=== PATIENT | female | born 1965 | race Hispanic/Latino ===

== ENCOUNTER 2018-12-31 09:09 | Day surgery (SDC) | payer BC ==
[2018-12-30 13:49] LABS: Absolute Lymphocytes (CBC) 1.2 K/uL (0.7-4.9); Absolute Monocytes 0.6 K/uL (0.1-1.3); Absolute Neutrophil 3.7 K/uL (1.8-8.0); Basophils % 0.5 % (0-1.3); Eosinophils % 1.2 % (0-4.4); Hematocrit 38.9 % (36.0-45.0); Lymphocytes % 21.4 % (15.3-44.8); Monocytes % 10.6 % (3.3-12.3); RBC Red Blood Cell Count 4.37 M/uL (3.86-4.86)
--- NOTE | 2018-12-30 14:07 | RAD REPORT ---
EXAM DESCRIPTION: Meño Acosta (2 Views)12/30/2018 1:58 pm CLINICAL HISTORY: Preop for left thumb surgery COMPARISON: None FINDINGS: The lungs appear clear of acute infiltrate. The heart is normal size IMPRESSION: No acute abnormalities displayed
[2018-12-30 14:11] LABS: Potassium 3.8 mmol/L (3.5-5.1)
--- NOTE | 2018-12-31 07:41 | EKG ---
Test Date: 2018-12-30 Test Time: 13:43:58 Flat Clothier: LEONARDO MEASUREMENT RESULTS: Intervals: Rate: 67 SD: 176 QRSD: 102 QT: 406 QTc: 429 [place]: P: 70 SD: 176 QRS: 22 T: 36 INTERPRETIVE STATEMENTS: Normal sinus rhythm Incomplete right bundle branch block Possible Anterior infarct, age undetermined Abnormal ECG No previous ECG available for comparison Electronically Signed On 12-31-18 07:40:51 CDT by Dick Rock
--- OUTSIDE RECORDS SUMMARY | 2018-12-31 09:12 | XMS REPORT ---
:1965 [facility] Address [address] [place] [address] Care Team Providers Name Role Phone MIGUELANGEL SUH Primary Care Provider Unavailable MIGUELANGEL SUH Unavailable Unavailable Problems This patient has no known problems. Allergies, Adverse Reactions, Alerts This patient has no known allergies or adverse reactions. Medications This patient has no known medications. Encounters Start End Encounter Admission Attending Care Care Encounter Date/Time Date/Time Type Type Clinicians Facility Department ID 2017-07-03 2017-07-03 Outpatient Prisca SUH [facility] [id number] 20:13:00 20:13:00 MIGUELANGEL Results Test Description Test Time Test Comments Text Results Atomic Results Result Comments Thyroid Stimulating Hormone (TSH) 2017-07-04 23:57:00 Test Item Value Reference Range Comments TSH (test code=TSH) 1.40 mIU/mL 0.270-4.200 Sed Rate ESR ([place])2017-07-04 23:01:00 Test Item Value Reference Range Comments ESR (test code=HESR) 34 mm/Hr 0-20 Comprehensive Metabolic [id number] 21:54:00 Test Item Value Reference Range Comments Sodium (test code=NA) 139 mmol/L 135-145 Potassium (test code=K) 3.7 mmol/L 3.5-5.1 Chloride (test code=CL) 98 mmol/L 98-105 Carbon Dioxide (test 27 mmol/L 22-29 code=CO2) Glucose (test code=GLU) 102 mg/dL 70-115 Blood Urea Nitrogen 15 mg/dL 6-20 (test code=BUN) Creatinine (test 0.7 mg/dL 0.5-0.9 code=CREAT) Calcium (test code=CA) 9.7 mg/dL 8.3-10.5 Prot Total (test 7.6 g/dL 6.4-8.3 code=TP) Albumin (test code=ALB) 4.7 g/dL 3.5-5.2 A/G Ratio (test 1.6 Ratio code=AGRATIO) Globulin (test 2.9 2.9-3.1 code=GLOB) Bili Total (test 0.4 mg/dL 0.1-0.9 code=TBIL) Alk Phos (test 134 U/L 35-104 code=APHOS) AST (test code=AST) 32 U/L 1-32 ALT (test code=ALT) 56 U/L 1-33 BUN/Creatinine Ratio 21.4 (test code=BCRATIO) Anion Gap (test 14 mmol/L 7-16 code=AGAP) Estimated GFR (test >60 mL/min/1.73m2 eGFR (estimated Glomerular code=GFR) Filtration Rate) is an estimated value,calculated from the patient's serum creatinine using the MDRD equation.It is NOT the patient's actual GFR. The eGFR provides a more clinicallyuseful measure of kidney disease than serum creatinine alone.This calculation takes sex and race into account, if the informationis provided. If the race is not provided, and the patient isAfrican-Grenadian, multiply by 1.212. If sex is not provided, and thepatient is female, multiply by 0.742. Results for patients <18 years ofage have not been validated by the MDRD study and should be interpretedwith caution.eGFR Result Interpretation:eGFR > or=60 is in the Normal RangeeGFR < 60 may mean kidney diseaseeGFR < 15 may mean kidney failureRanges recommended by the National Kidney Foundation,http://nkdep.nih .gov Lipid [id number] 21:54:00 Test Item Value Reference Range Comments Cholesterol (test 214 mg/dL 0-200 code=CHOL) Triglycerides (test 97 mg/dL 9-200 code=TRIG) HDL (test code=HDL) 70 mg/dL 50-60 Chol/HDL (test 3.1 Ratio 0.0-4.4 code=CHOLPHDL) LDL, Calculated (test 125 mg/dL 0-130 (NOTE)RISK OF HEART code=LDLC) DISEASEPublished by [place] Heart AssociationAnalyte Optimal Boderline Increased RiskCHOL <200 200-239 >240TRIG <150 150-199 >200HDL Male: >60 <40HDL Female: >60 <50LDL <100 130-159 >160LDL NEAR OPTIMAL IS 100-129 VLDL (test code=VLDL) 19 mg/dL 5-40 LDL/HDL (test code=LDLPHDL) 2 CBC with [id number] 21:51:00 Test Item Value Reference Range Comments WBC (test code=WBC) 5.1 K/cumm 4.4-10.5 RBC (test code=RBC) 4.30 M/cumm 3.75-5.20 Hemoglobin (test code=HGB) 13.2 gm/dL 12.2-14.8 Hematocrit (test code=HCT) 38.6 % 36.5-44.4 MCV (test code=MCV) 89.8 fL 80-100 MCH (test code=MCH) 30.6 pg 27.0-32.5 MCHC (test code=MCHC) 34.1 g/dL 32.0-37.5 RDW (test code=RDW) 13.6 % 11.5-14.5 Platelet Count (test code=PLTCT) 274 K/cumm 140-440 MPV (test code=MPV) 10.7 fL Diff Method (test code=DIFFM) Auto Neutrophil (test code=NEUT) 75.3 % 36-70 Lymphocyte (test code=LYMPH) 17.4 % 12-44 Monocyte (test code=MONO) 5.5 % 0-11 Eosinophil (test code=EOS) 1.4 % 0-7 Basophil (test code=BASO) 0.3 % 0-2 Neutro Abs (test code=ANEUT) 3.8 K/cumm 1.6-7.4 Lymph Abs (test code=ALYMPH) 0.9 K/cumm 0.5-4.6 Inyo Abs (test code=AMONO) 0.3 K/cumm 0.0-1.2 Eos Abs (test code=AEOS) 0.07 K/cumm 0.00-0.74 Baso Abs (test code=ABASO) 0.0 K/cumm 0.00-0.21
--- OUTSIDE RECORDS SUMMARY | 2018-12-31 09:12 | XMS REPORT | Encounter Summary ---
:1965 Author Care Team Providers Name Role Phone Palak Aguilar MD Primary Care Provider [phone] Reason for Visit Pain Instructions 1. Fishing hook in finger Adacel (Tdap Adolesn/Adult)(PF)2 Lf-(2.5-5-3-5)-5 Lf/0.5 mL IM syringe doxycycline hyclate 100 mg capsule XR, hand, 2 view Discussion Note: None recorded.Patient educational handouts: No information available. Plan of Care Reminders Provider Appointments None recorded. Lab None recorded. Referral None recorded. Procedures None recorded. Surgeries None recorded. Imaging XR, Hand, 12/04/2018 [facility] Medications Name Start Date doxycycline hyclate 100 mg capsule Take 1 capsule twice a day by oral route for 10 days. Medications Administered None recorded. Vitals Height Weight BMI Blood Pressure 67 in 206 lbs 0.02 oz 32.3 kg/m2 160/87 mm[Hg] Lab Results None recorded. Allergies Code Code System Name Reaction Severity Status Onset NKDA Problems Name Status Onset Date Source Low Back Pain Active 10/16/2016 Neutropenia Active Encounter Procedures Date Name Performed by 12/04/2018 XR, Hand, 2 View [facility] [address] [place] [id number] (Work Place) Vaccine List Vaccine Type Tdap 12/04/20180.5 mL Social History Smoking Status Never Smoker Past Encounters 12/04/2018 Fishing Hook in Finger Aashish Schmitz MD: [address] [place] [address], [address], [place] [address], Ph. History of Present Illness Note: Patient was fishing last week and as she was reeling in a fish she thought she poked herself with a hook on the palmar surface of the leftt finger. Fourth finger. The patient is unclear as to when her last tetanus shot was. The patient has not had any fevers or chills. No nausea or vomiting. The area where she poked herself has become red but no streaking fluctuance or drainage has been noted.Review of Systems: ROS as noted in the HPI Review of Systems None recorded. Physical Exam General Adult Exam - Female Reported By: Patient Constitutional: General Appearance: healthy-appearing, well-nourished, well-developed. Level of Distress: NAD. Ambulation: ambulating normally Lungs: Respiratory effort: no dyspnea. Percussion: no dullness, flatness, or hyperresonance. Auscultation: breath sounds normal, good air movement, CTA except as noted, no wheezing, no rales/crackles, no rhonchi Cardiovascular: Apical Impulse: not displaced. Heart Auscultation: RRR, normal S1, normal S2, no murmurs, no rubs, no gallops. Neck vessels: no carotid bruits. Pulses including femoral / pedal: normal throughout Musculoskeletal:: Motor Strength and Tone: normal motor strength, normal tone. Joints, Bones, and Muscles: ; Palmar surface of the fourth Finger left hand has a area of puncture wound. Mild tenderness to palpation mild erythema and no fluctuance and no drainage. Extremities: no cyanosis, no edema Skin: Inspection and palpation: no rash, no lesions, no ulcer, no abnormal nevi, no induration, no nodules, good turgor, no jaundice. Nails: normal
[2018-12-31] MEDS ORDERED: Ringers Lactate 1,000 ML IV ONE (09:41)
[2018-12-31] MEDS ORDERED: CEFAZOLIN/SWI 1gm 0 GM/0 ML SYR ONE (09:56)
[2018-12-31] MEDS ORDERED: BUPIVACAINE 0.5% PF 10 ML VIAL ONE (10:46)
[2018-12-31] MEDS ORDERED: CEFAZOLIN/SWI 1gm 1 GM/10 ML SYR ONE (10:48)
[2018-12-31] MEDS ORDERED: MIDAZOLAM HCL 2 MG/2 ML INJ ONE (11:01)
[2018-12-31] MEDS ORDERED: PROPOFOL 200 MG/20 ML VIAL IV ONE (11:01)
[2018-12-31] MEDS ORDERED: KETOROLAC 30 MG/ML INJ ONE (11:01)
[2018-12-31] MEDS ORDERED: FENTANYL CITR 100 MCG/2 ML ONE (11:01)
[2018-12-31] MEDS ORDERED: LIDOCAINE 2% MPF 5 ML VIAL ONE (11:02)
--- NOTE | 2018-12-31 11:23 | P.BOP ---
Preoperative diagnosis: left thumb abscess, trauma, puncture non healing wound Postoperative diagnosis: same Primary procedure: incision and drainage left thumb abscess with subq debridement 2.5 x 2 cm Estimated blood loss: <5cc Specimen: culture, devitalized tissue Anesthesia: General Complications: None Transferred to: Recovery Room Condition: Good
--- NOTE | 2019-01-01 04:40 | DS ---
Date of Discharge: 12/31/2018 Diagnosis: Left thumb abscess with puncture wound. Procedure: Incision and drainage of left thumb abscess with subcutaneous debridement. Disposition: Home. Activity: As tolerated. No heavy lifting. Discharge Instructions: Follow up in my office in 1 week. Call for appointment at [phone]. After that, Bactroban after cleaning the area with running water and soap and water twice a day. Medications: See orders. RALPH/MODL Voice ID: [id number] Report ID: [id number]
--- NOTE | 2019-01-01 05:27 | OP ---
Date of Procedure: 12/31/2018 Surgeon: Dl Zapata MD Preoperative Diagnosis: Left thumb abscess trauma, status post puncture wound with nonhealing wound. Postoperative Diagnosis: Left thumb abscess trauma, status post puncture wound with nonhealing wound . Procedure: Incision and drainage of left thumb abscess with subcutaneous debridement, 2.5 x 2 cm. Anesthesia: General plus local. Specimen: Culture and devitalized tissue. Estimated Blood Loss: Less than 5 cc. Indications: This is a case of a 53-year-old patient, who was fishing recently and then she has a pu ncture wound of the left thumb region. She has been on antibiotics for more than a week and has not improved, now with frequently present tenderness. She thinks it was a shrimp shell that caught the a boubacar. She cannot rule out a fishbone since she was working with both. The patient had an x-ray. We did not see any nonorganic foreign body in that area. The area has not healed, she has an abscess, so the patient want that cleaned. The benefits, alternatives, and risks of incision and dr yang and debridement of the devitalized tissue fully explained to the patient, which include but ar e not limited to infection, bleeding, damage to adjacent structures, anesthesia complication, nonheal ing wound, [place], and even . She also understands this may not relieve any symptoms. She might ne ed more than one surgical intervention. She understands she may require wound care. She signed a co nsent. The area of concern was marked by me and the patient in the holding room. Description Of Procedure: The patient was brought to the operating room and placed in supine positio n. Anesthesia was done without complication. Left hand was prepped and draped in a sterile fashion. We injected local anesthetic over the area. After that, I proceeded to cut the devitalized tissue with a knife as there was an ulcer with some ulceration with mainly a foreign body in that area and s ome debris, so I proceeded to remove all the necrotic tissue present, that led us into the subcutaneo us tissue with an abscess, that was cultured. I cannot see any big piece of bone. We debrided the a boubacar, irrigated profusely in case any microscopic debris was present. The bone was not exposed. Tend on was not exposed. Covered with wet-to-dry dressing. The patient tolerated the procedure well. Th e patient was sent to Recovery in stable condition. Sponge counts and instrument counts were correct . RALPH/VLADIMIR Voice ID: [id number] Report ID: [id number]
== END 2018-12-31 12:54 | disposition home or self-care (01) ==
LOC: OR 09:09
PROVIDERS: ATTEND Surgery
PROC: 0JDK3ZZ Extraction of Left Hand Subcutaneous Tissue and Fascia, Percutaneous Approach (ICD-10-PCS; principal; 2018-12-31 13:15)
DX: S61.042A Puncture wound with foreign body of left thumb without damage to nail, initial encounter (principal); X58.XXXA Exposure to other specified factors, initial encounter; L03.012 Cellulitis of left finger; L83 Acanthosis nigricans; R23.4 Changes in skin texture; L02.512 Cutaneous abscess of left hand
CPT/HCPCS: 36415; 71046; 80048; 85025; 87070; 87075; 87205; 88305; 88312; 93005; J0690; J2250; J2704; J3010